=== PATIENT | male | born 1995 | race Asian ===

== ENCOUNTER 2018-11-19 21:03 | Inpatient (IN) | payer MEDICAID ==
[~2018-11-19] VITALS: Ht 165.1 cm; Wt 64.1 kg
[2018-11-19 23:58] LABS: AMPHET/METH SCREEN,URINE NEGATIVE (NEGATIVE); BARBITURATE SCREEN, URINE NEGATIVE (NEGATIVE); BENZODIAZEPINES SCREEN,URINE NEGATIVE (NEGATIVE); CANNABINOID SCREEN,URINE NEGATIVE (NEGATIVE); COCAINE SCREEN,URINE NEGATIVE (NEGATIVE); METHADONE SCREEN, URINE NEGATIVE (NEGATIVE); OPIATE SCREEN,URINE NEGATIVE (NEGATIVE); PHENCYCLIDINE SCREEN,URINE NEGATIVE (NEGATIVE)
[2018-11-20] MEDS ORDERED: LIDOCAINE 2% 5 ML JELLY TP ONE (00:30)
[2018-11-20] MEDS ORDERED: PERTUSS(ACELL),DIPH,TET VAC/PF 0.5 ML VIAL IM ONE (00:30)
[2018-11-20] MEDS ORDERED: ZOLPIDEM TARTRATE 10 MG TABLET PO PRN (01:30)
[2018-11-20] MEDS ORDERED: LORazepam 2 MG TABLET PO PRN (01:30)
[2018-11-20] MEDS ORDERED: HALOPERIDOL 5 MG TABLET PO PRN (01:30)
[2018-11-20 04:27] LABS: APPEARANCE,URINE CLEAR (CLEAR); BILIRUBIN,URINE NEGATIVE (NEGATIVE); GLUCOSE, URINE (UA) NEGATIVE (NEGATIVE); KETONES,URINE TRACE mg/dL (NEGATIVE); LEUKOCYTE ESTERASE ,URINE NEGATIVE (NEGATIVE); NITRATE,URINE NEGATIVE (NEGATIVE); OCCULT BLOOD,URINE NEGATIVE (NEGATIVE); PH,URINE 5.5 (5.0-8.0); PROTEIN,URINE NEGATIVE (NEGATIVE)
[2018-11-20] MEDS ORDERED: IBUPROFEN 400 MG TABLET PO PRN (07:30)
[2018-11-20] MEDS ORDERED: ACETAMINOPHEN 325 MG TABLET PO PRN (07:30)
[2018-11-20] MEDS ORDERED: LOPERAMIDE HCL 2 MG CAPSULE PO PRN (07:30)
[2018-11-20] MEDS ORDERED: MAG HYDROX/AL HYDROX/SIMETH ES 30 ML SUSPENSION UDCUP PO PRN (07:30)
[2018-11-20] MEDS ORDERED: PETROLATUM,WHITE 71 GM JELLY TP PRN (07:30)
[2018-11-20] MEDS ORDERED: MAGNESIUM HYDROXIDE SUSPENSION 30 ML UDCUP PO PRN (07:30)
[2018-11-20] MEDS ORDERED: CloNIDine HCL 0.1 MG TABLET PO PRN (07:30)
[2018-11-20] MEDS ORDERED: DOCUSATE SODIUM 100 MG CAPSULE PO PRN (07:30)
[2018-11-20] MEDS ORDERED: ALBUTEROL SULFATE HFA 90 MCG/PUFF 8 GM INHALER IH PRN (07:30)
[2018-11-20] MEDS ORDERED: GuaiFENesin/D-METHORPHAN [SUGAR-FREE] 200-20MG/10 ML SYRUP UDCUP PO PRN (07:30)
[2018-11-20] MEDS ORDERED: NICOTINE 14 MG/24 HOUR PATCH TD PRN (07:30)
[2018-11-20] MEDS ORDERED: ONDANSETRON HCL 4 MG TABLET PO PRN (07:30)
[2018-11-20 08:24] VITALS: BP 106/65
[2018-11-20] MEDS: OLANZapine 5 MG RAPDIS TABLET PO SCH ×2 (10:15→16:30)
[2018-11-20 16:09] VITALS: BP 117/66
[2018-11-21] MEDS: OLANZapine 5 MG RAPDIS TABLET PO SCH ×2 (08:34→16:47)
[2018-11-21] MEDS: BACITRACIN 28.4 GM OINTMENT TP SCH ×2 (08:35→16:47)
[2018-11-21 08:37] VITALS: BP 105/61
[2018-11-21 16:00] VITALS: BP 114/70
[2018-11-22 06:05] VITALS: BP 113/76
[2018-11-22 08:19] VITALS: BP 113/83
[2018-11-22] MEDS: BACITRACIN 28.4 GM OINTMENT TP SCH ×2 (09:00→16:31)
[2018-11-22] MEDS: OLANZapine 5 MG RAPDIS TABLET PO SCH ×2 (09:54→16:31)
[2018-11-22 16:11] VITALS: BP 103/62
[2018-11-23 05:37] VITALS: BP 108/68
[2018-11-23 08:30] VITALS: BP 111/69
[2018-11-23] MEDS: BACITRACIN 28.4 GM OINTMENT TP SCH ×2 (09:14→16:56)
[2018-11-23] MEDS: OLANZapine 5 MG RAPDIS TABLET PO SCH ×2 (09:14→16:56)
[2018-11-23 14:15] VITALS: BP 111/68
[2018-11-23 16:00] VITALS: BP 117/67
[2018-11-24 05:59] VITALS: BP 120/70
[2018-11-24] MEDS: BACITRACIN 28.4 GM OINTMENT TP SCH ×2 (08:05→17:17)
[2018-11-24] MEDS: OLANZapine 5 MG RAPDIS TABLET PO SCH ×2 (08:05→17:17)
[2018-11-24 08:28] VITALS: BP 124/78
[2018-11-24 17:57] VITALS: BP 133/60
[2018-11-25 06:12] VITALS: BP 120/81
[2018-11-25 08:03] VITALS: BP 118/86
[2018-11-25 08:04] VITALS: BP 118/86
[2018-11-25] MEDS: BACITRACIN 28.4 GM OINTMENT TP SCH ×2 (08:04→16:18)
[2018-11-25] MEDS: OLANZapine 5 MG RAPDIS TABLET PO SCH ×2 (08:04→16:18)
[2018-11-25 08:51] LABS: HEMOGLOBIN A1C 5.3 % (4.5-6.2)
[2018-11-25 08:58] LABS: ALANINE AMINOTRANSFERASE 11 U/L (12-78); ALBUMIN 3.4 g/dL (3.4-5.0); ALKALINE PHOSPHATASE 41 U/L (46-116); ANION GAP 6 mmol/L (8-16); ASPARTATE AMINOTRANSFERASE 11 U/L (15-37); BILIRUBIN,TOTAL 0.3 mg/dL (0.1-1.0); CALCIUM, TOTAL 8.8 mg/dL (8.8-10.5); CARBON DIOXIDE 29 mmol/L (22-29); CHLORIDE 105 mmol/L (98-107); CHOL/HDL RATIO 3.4 (4.2-7.3); CHOLESTEROL 141 mg/dL (131-200); CREATININE 1.04 mg/dL (0.60-1.30); GLOMERULAR FILTR. RATE CALC > 60 mL/min (>60); GLUCOSE,RANDOM 88 mg/dL (70-110); HDL CHOLESTEROL 42 mg/dL (40-60); LDL CHOL (CALC.) 90 mg/dL (0-130); SODIUM SERUM 140 mmol/L (136-145); THYROID STIMULATING HORMONE 3.84 uIU/mL (0.36-3.74); TOTAL PROTEIN, SERUM 6.7 g/dL (6.4-8.2); TRIGLYCERIDES 46 mg/dL (15-150)
[2018-11-25 09:09] LABS: UREA NITROGEN, BLOOD 16 mg/dL (7-18)
[2018-11-25 16:23] VITALS: BP 118/75
[2018-11-26 00:54] VITALS: BP 114/66
[2018-11-26] MEDS: BACITRACIN 28.4 GM OINTMENT TP SCH ×2 (08:15→16:09)
[2018-11-26] MEDS: OLANZapine 5 MG RAPDIS TABLET PO SCH ×2 (08:15→16:09)
[2018-11-26 08:25] VITALS: BP 115/65
[2018-11-26 17:10] VITALS: BP 104/60
[2018-11-27 01:10] VITALS: BP 108/73
[2018-11-27] MEDS: OLANZapine 5 MG RAPDIS TABLET PO SCH ×2 (08:22→16:53)
[2018-11-27] MEDS: BACITRACIN 28.4 GM OINTMENT TP SCH ×2 (08:23→16:53)
[2018-11-27 08:39] VITALS: BP 110/69
[2018-11-27 16:34] VITALS: BP 118/71
[2018-11-28 01:23] VITALS: BP 108/62
[2018-11-28 08:34] VITALS: BP_SYST 108
[2018-11-28] MEDS: OLANZapine 5 MG RAPDIS TABLET PO SCH ×2 (09:06→16:57)
[2018-11-28] MEDS: BACITRACIN 28.4 GM OINTMENT TP SCH ×2 (11:13→16:59)
[2018-11-28 16:02] VITALS: BP 108/62
[2018-11-29 03:21] VITALS: BP 110/67
[2018-11-29 08:24] VITALS: BP 113/71
[2018-11-29] MEDS: BACITRACIN 28.4 GM OINTMENT TP SCH ×2 (09:00→16:29)
[2018-11-29] MEDS: OLANZapine 5 MG RAPDIS TABLET PO SCH ×2 (09:45→16:29)
[2018-11-29 16:19] VITALS: BP 117/68
[2018-11-30 01:30] VITALS: BP 113/63
[2018-11-30] MEDS: BACITRACIN 28.4 GM OINTMENT TP SCH ×2 (09:00→16:51)
[2018-11-30] MEDS: OLANZapine 5 MG RAPDIS TABLET PO SCH ×2 (09:07→16:50)
[2018-11-30 09:20] VITALS: BP 119/67
[2018-11-30 16:28] VITALS: BP 120/61
[2018-12-01 00:24] VITALS: BP 115/65
[2018-12-01 09:21] VITALS: BP 100/80
[2018-12-01] MEDS: OLANZapine 5 MG RAPDIS TABLET PO SCH ×2 (09:37→16:57)
[2018-12-01 19:01] VITALS: BP 121/64
[2018-12-02 06:20] VITALS: BP 116/64
[2018-12-02] MEDS: OLANZapine 5 MG RAPDIS TABLET PO SCH ×2 (08:16→16:18)
[2018-12-02 10:14] VITALS: BP 115/65
[2018-12-02 16:06] VITALS: BP 100/72
[2018-12-03 00:38] VITALS: BP 110/68
[2018-12-03] MEDS: OLANZapine 5 MG RAPDIS TABLET PO SCH ×2 (08:06→16:07)
[2018-12-03 08:32] VITALS: BP 119/68
[2018-12-03] MEDS: POVIDONE-IODINE 30 GM OINTMENT TP SCH (16:07)
[2018-12-03] MEDS: NEOMYCIN/BACITRACIN/POLYMYXIN B 30 GM OINTMENT TP SCH (16:07)
[2018-12-03 16:40] VITALS: BP 115/71
[2018-12-04 00:38] VITALS: BP 110/68
[2018-12-04 00:40] VITALS: BP 116/60
[2018-12-04] MEDS: NEOMYCIN/BACITRACIN/POLYMYXIN B 30 GM OINTMENT TP SCH ×2 (08:16→17:00)
[2018-12-04] MEDS: OLANZapine 5 MG RAPDIS TABLET PO SCH ×2 (08:16→16:36)
[2018-12-04] MEDS: POVIDONE-IODINE 30 GM OINTMENT TP SCH ×2 (08:16→17:00)
[2018-12-04 08:35] VITALS: BP 116/72
[2018-12-04 17:47] VITALS: BP 115/65
[2018-12-05 03:30] VITALS: BP 118/72
[2018-12-05] MEDS: OLANZapine 5 MG RAPDIS TABLET PO SCH (08:06)
[2018-12-05] MEDS: POVIDONE-IODINE 30 GM OINTMENT TP SCH (08:06)
[2018-12-05] MEDS: NEOMYCIN/BACITRACIN/POLYMYXIN B 30 GM OINTMENT TP SCH (08:07)
[2018-12-05 08:41] VITALS: BP 118/64
[2018-12-05] MEDS ORDERED: OLAN5TAB40 PO (12:26)
== END 2018-12-05 14:20 | disposition home or self-care (01) | DRG 740 ==
LOC: EMS 21:04 → B3A 11-20 02:24 → B2S 11-24 10:00
PROVIDERS: ADMIT Psychiatry & Neurology Child & Adolescent Psychiatry; ATTEND Psychiatry & Neurology Child & Adolescent Psychiatry
PROC: 0YQMXZZ Repair Right Foot, External Approach (ICD-10-PCS; principal; 2018-11-20)
DX: F29 Unspecified psychosis not due to a substance or known physiological condition (principal); S91.311A Laceration without foreign body, right foot, initial encounter; F31.9 Bipolar disorder, unspecified; F41.9 Anxiety disorder, unspecified; K21.9 Gastro-esophageal reflux disease without esophagitis; G47.00 Insomnia, unspecified; R45.1 Restlessness and agitation; R45.87 Impulsiveness; X58.XXXA Exposure to other specified factors, initial encounter; Y93.89 Activity, other specified; Z91.19 Patient's noncompliance with other medical treatment and regimen; Y92.89 Other specified places as the place of occurrence of the external cause; Y99.8 Other external cause status
CPT/HCPCS: 12001; 83036; 84443; 90471; 90686; 90715

== ENCOUNTER 2019-06-21 17:20 | Inpatient (IN) | payer MEDICAID ==
[~2019-06-21] VITALS: Ht 165.1 cm; Wt 66.2 kg
[~2019-06-21 17:20] MED LIST: OLAN5TAB40 PO
[2019-06-21 21:38] VITALS: BP 134/68
[2019-06-21] MEDS ORDERED: ZOLPIDEM TARTRATE 10 MG TABLET PO PRN (21:45)
[2019-06-21] MEDS ORDERED: HALOPERIDOL 5 MG TABLET PO PRN (21:45)
[2019-06-21] MEDS ORDERED: LORazepam 1 MG TABLET PO PRN (21:45)
[2019-06-21 22:16] VITALS: BP 121/69
[2019-06-22 05:05] VITALS: BP 125/80
[2019-06-22 08:04] VITALS: BP 123/68
[2019-06-22 08:08] LABS: BASOPHILS % (AUTO) 0.6 % (0.0-2.0); EOSINOPHILS % (AUTO) 1.2 % (1.0-6.0); HEMATOCRIT 41.8 % (41-53); HEMOGLOBIN 14.4 g/dL (13.5-17.5); LYMPHOCYTES # (AUTO) 1.9 K/uL (1.0-4.8); MEAN CORPUSCULAR HEMOGLOBIN 28.8 pg (26.0-34.0); MEAN CORPUSCULAR HGB CONC 34.4 G/dL (31.0-37.0); MEAN CORPUSCULAR VOLUME 84 fL (80-100); MONOCYTES # (AUTO) 0.5 K/uL (0.1-1.0); MONOCYTES % (AUTO) 10.4 % (2.0-9.0); NEUTROPHILS # (AUTO) 2.1 K/uL (1.8-7.7); NEUTROPHILS % (AUTO) 45.8 % (40.0-70.0); PLATELET COUNT (AUTO) 197 K/uL (150-450); RED BLOOD CELL COUNT(AUTO) 4.99 MIL/uL (4.50-5.90); RED CELL DISTRIBUTION WIDTH 12.9 % (11.5-14.5)
[2019-06-22 08:24] LABS: HEMOGLOBIN A1C 4.9 % (4.5-6.2)
[2019-06-22 08:26] LABS: ALBUMIN 3.5 g/dL (3.4-5.0); ALKALINE PHOSPHATASE 35 U/L (46-116); ANION GAP 6 mmol/L (8-16); ASPARTATE AMINOTRANSFERASE 11 U/L (15-37); BILIRUBIN,TOTAL 0.5 mg/dL (0.1-1.0); CALCIUM, TOTAL 8.3 mg/dL (8.8-10.5); CARBON DIOXIDE 27 mmol/L (22-29); CHLORIDE 105 mmol/L (98-107); CREATININE 0.98 mg/dL (0.60-1.30); GLOMERULAR FILTR. RATE CALC > 60 mL/min (>60); GLUCOSE,RANDOM 86 mg/dL (70-110); HDL CHOLESTEROL 39 mg/dL (40-60); POTASSIUM 4.2 mmol/L (3.5-5.1); SODIUM SERUM 138 mmol/L (136-145); TOTAL PROTEIN, SERUM 6.1 g/dL (6.4-8.2); TRIGLYCERIDES 118 mg/dL (15-150); UREA NITROGEN, BLOOD 16 mg/dL (7-18)
[2019-06-22 08:44] LABS: CHOL/HDL RATIO 3.3 (4.2-7.3); CHOLESTEROL 128 mg/dL (131-200); FREE T4 (FREE THYROXINE) 1.13 ng/dL (0.76-1.46); LDL CHOL (CALC.) 65 mg/dL (0-130)
[2019-06-22 09:12] LABS: ALANINE AMINOTRANSFERASE 8 U/L (12-78)
[2019-06-22] MEDS ORDERED: CloNIDine HCL 0.1 MG TABLET PO PRN (11:45)
[2019-06-22] MEDS ORDERED: IBUPROFEN 400 MG TABLET PO PRN (11:45)
[2019-06-22] MEDS ORDERED: DOCUSATE SODIUM 100 MG CAPSULE PO PRN (11:45)
[2019-06-22] MEDS ORDERED: ALBUTEROL SULFATE HFA 90 MCG/PUFF 8 GM INHALER IH PRN (11:45)
[2019-06-22] MEDS ORDERED: MAG HYDROX/AL HYDROX/SIMETH ES 30 ML SUSPENSION UDCUP PO PRN (11:45)
[2019-06-22] MEDS ORDERED: MAGNESIUM HYDROXIDE SUSPENSION 30 ML UDCUP PO PRN (11:45)
[2019-06-22] MEDS ORDERED: LOPERAMIDE HCL 2 MG CAPSULE PO PRN (11:45)
[2019-06-22] MEDS ORDERED: NICOTINE 14 MG/24 HOUR PATCH TD PRN (11:45)
[2019-06-22] MEDS ORDERED: GuaiFENesin/D-METHORPHAN [SUGAR-FREE] 200-20MG/10 ML SYRUP UDCUP PO PRN (11:45)
[2019-06-22] MEDS ORDERED: ACETAMINOPHEN 325 MG TABLET PO PRN (11:45)
[2019-06-22] MEDS ORDERED: ONDANSETRON HCL 4 MG TABLET PO PRN (11:45)
[2019-06-22] MEDS ORDERED: PETROLATUM,WHITE 28 GM JELLY TP PRN (11:45)
[2019-06-22 16:02] VITALS: BP 110/64
[2019-06-22] MEDS: OLANZapine 5 MG RAPDIS TABLET PO SCH (16:15)
[2019-06-23 08:06] VITALS: BP 125/81
[2019-06-23] MEDS: OLANZapine 5 MG RAPDIS TABLET PO SCH ×3 (08:55→16:40)
[2019-06-23 16:00] VITALS: BP 119/67
[2019-06-24 00:13] VITALS: BP 121/68
[2019-06-24] MEDS ORDERED: INFLUENZA VIRUS VACCINE QVS 2019-20 (3YR+)/PF 60 MCG/0.5 ML SYRINGE IM ONE (03:30)
[2019-06-24] MEDS: OLANZapine 5 MG RAPDIS TABLET PO SCH (08:09)
[2019-06-24 08:26] VITALS: BP 117/67
[2019-06-24] MEDS: OLANZapine 10 MG RAPDIS TABLET PO SCH (16:01)
[2019-06-24 16:02] VITALS: BP 117/87
[2019-06-25 00:07] VITALS: BP 121/68
[2019-06-25] MEDS: OLANZapine 10 MG RAPDIS TABLET PO SCH ×2 (08:31→16:50)
[2019-06-25 13:15] VITALS: BP 124/68
[2019-06-25 16:01] VITALS: BP 123/70
[2019-06-26 00:03] VITALS: BP 105/63
[2019-06-26 08:06] VITALS: BP 115/62
[2019-06-26] MEDS: OLANZapine 10 MG RAPDIS TABLET PO SCH ×2 (08:10→16:04)
[2019-06-26 16:01] VITALS: BP 105/56
[2019-06-27 06:13] VITALS: BP 121/78
[2019-06-27 08:02] VITALS: BP 133/78
[2019-06-27] MEDS: OLANZapine 10 MG RAPDIS TABLET PO SCH ×2 (08:04→16:35)
[2019-06-27 16:00] VITALS: BP 119/74
[2019-06-28 01:11] VITALS: BP 119/83
[2019-06-28 08:10] VITALS: BP 115/64
[2019-06-28] MEDS: OLANZapine 10 MG RAPDIS TABLET PO SCH ×2 (08:10→16:19)
[2019-06-28 16:02] VITALS: BP 117/72
[2019-06-29 00:57] VITALS: BP 130/65
[2019-06-29] MEDS: OLANZapine 10 MG RAPDIS TABLET PO SCH ×2 (08:17→16:11)
[2019-06-29 08:25] VITALS: BP 112/68
[2019-06-29 16:10] VITALS: BP 122/73
[2019-06-30 00:42] VITALS: BP 110/62
[2019-06-30 01:37] VITALS: BP 107/62
[2019-06-30 08:11] VITALS: BP 112/69
[2019-06-30] MEDS: OLANZapine 10 MG RAPDIS TABLET PO SCH ×2 (08:25→16:08)
[2019-06-30 16:14] VITALS: BP 116/68
[2019-07-01 06:07] VITALS: BP 119/60
[2019-07-01 08:14] VITALS: BP 121/74
[2019-07-01] MEDS: OLANZapine 10 MG RAPDIS TABLET PO SCH ×2 (08:24→16:06)
[2019-07-01 16:00] VITALS: BP 129/68
[2019-07-02 05:36] VITALS: BP 107/62
[2019-07-02 08:14] VITALS: BP 140/72
[2019-07-02] MEDS: OLANZapine 10 MG RAPDIS TABLET PO SCH (08:28)
== END 2019-07-02 13:25 | disposition home or self-care (01) | DRG 750 ==
LOC: B2S 20:25
PROVIDERS: ADMIT Psychiatry & Neurology Psychiatry; ATTEND Psychiatry & Neurology Psychiatry
DX: F20.0 Paranoid schizophrenia (principal); Z91.19 Patient's noncompliance with other medical treatment and regimen; F19.10 Other psychoactive substance abuse, uncomplicated; K21.9 Gastro-esophageal reflux disease without esophagitis; K59.00 Constipation, unspecified; Z71.51 Drug abuse counseling and surveillance of drug abuser
CPT/HCPCS: 83036; 84439; 87081